=== PATIENT | male | born 1985 | race Hispanic/Latino ===

== ENCOUNTER 2021-03-17 15:54 | Emergency (ER) | payer BC, OTHER ==
[~2021-03-17] VITALS: Ht 170.2 cm; Wt 154.2 kg
[~2021-03-17 15:54] MED LIST: CLINDAMYCIN HC150 MG PO; TYLENOL WITH C1 EACH PO
[2021-03-17] MEDS ORDERED: ONDANSETRON HCL INJ 2MG/ML 2ML 2 MG/ML VIAL IV PRN (16:45)
[2021-03-17 16:55] LABS: BASOPHILS % 0.4 % (0.0-1.0); EOSINOPHILS # (AUTO) 0.2 (0.0-0.4); EOSINOPHILS % 2.1 % (0.0-6.0); HEMATOCRIT 47.6 % (38.2-49.6); LYMPHOCYTES # (AUTO) 2.6 (1.0-3.2); LYMPHOCYTES % 28.6 % (18.0-39.1); MEAN CORPUSCULAR HEMOGLOBIN 27.9 pg (28-32); MEAN CORPUSCULAR HGB CONC 31.5 g/dL (31-35); MEAN CORPUSCULAR VOLUME 88.5 fL (81-99); MONOCYTES # (AUTO) 0.7 (0.2-0.8); MONOCYTES % 7.1 % (4.4-11.3); NEUTROPHILS # (AUTO) 5.7 (2.1-6.9); NEUTROPHILS % 61.6 % (38.7-80.0); PLATELET COUNT 179 x10e3/uL (140-360); RED BLOOD COUNT 5.38 x10e6/uL (4.3-5.7); RED CELL DISTRIBUTION WIDTH 14.2 % (11.7-14.4)
[2021-03-17 17:12] LABS: ALBUMIN 3.6 g/dL (3.5-5.0); ALBUMIN/GLOBULIN RATIO 1.1 (0.8-2.0); ANION GAP 13.1 mmol/L (8-16); CREATININE, SERUM 0.96 mg/dL (0.72-1.25); POTASSIUM 4.1 mmol/L (3.5-5.1)
== END 2021-03-17 18:35 | disposition home or self-care (01) ==
LOC: ER 15:58
DX: R07.89 Other chest pain (principal); I10 Essential (primary) hypertension; I25.2 Old myocardial infarction; Z20.822 Contact with and (suspected) exposure to COVID-19; Z85.89 Personal history of malignant neoplasm of other organs and systems
CPT/HCPCS: 36415; 71045; 80053; 83880; 84484; 85025; 85379; 99284; U0002; 93005